=== PATIENT | female | born 1995 | race Two or more races ===

== ENCOUNTER 2023-01-05 20:15 | Inpatient (IN) | payer BC, MEDICAID ==
[~2023-01-05] VITALS: Ht 160 cm; Wt 105.9 kg
[2023-01-05] MEDS ORDERED: HYDROcodone-ACET 5/325MG TAB PO ONE (23:15)
[2023-01-05 23:33] LABS: Basophils # (auto) 0.1 10 ^3/uL (0-0.2); Basophils % (auto) 0.4 % (0.0-2.0); Eosinophils # (auto) 0.1 10 ^3/uL (0-0.8); Eosinophils % (auto) 0.7 % (0.0-7.0); Hematocrit 39.9 % (36.0-46.0); Hemoglobin 13.4 g/dL (12.2-16.2); Lymphocytes # (auto) 1.9 10 ^3/uL (0.4-5.4); Lymphocytes % (auto) 14.1 % (10.0-50.0); Mean Corpuscular Hemoglobin 30.9 pg (28.0-32.0); Mean Corpuscular Hgb Conc. 33.5 g/dL (32.0-36.0); Mean Corpuscular Volume 92.2 fL (80.0-100.0); Monocytes # (auto) 0.8 10 ^3/uL (0-1.3); Monocytes % (auto) 5.6 % (0.0-12.0); Neutrophils # (auto) 10.8 10 ^3/uL (1.6-8.6); Neutrophils % (auto) 79.2 % (37.0-80.0); Red Blood Cells 4.33 10^6/uL (4.0-5.20); Red Cell Distribution Width 13.5 % (11.8-14.3); White Blood Cell 13.6 10^3/uL (4.4-10.8)
[2023-01-05 23:47] LABS: Albumin 3.7 g/dL (3.4-5.0); Calcium 9.7 mg/dL (8.5-10.1); Potassium 4.1 mmol/L (3.5-5.1)
[2023-01-05 23:50] LABS: Bilirubin, Total 0.8 mg/dL (0.2-1.0); Total Protein 7.7 g/dL (6.4-8.2)
[2023-01-06] MEDS ORDERED: ONDANSETRON ODT 4 MG TAB PO ONE (01:00)
[2023-01-06] MEDS ORDERED: HYDROmorphone HCL 2 MG/ML VL/or syr IM ONE (02:15)
[2023-01-06] MEDS ORDERED: SODIUM CHLORIDE 0.9% 1,000 ML IV ONE (05:00)
[2023-01-06] MEDS ORDERED: DOCUSATE SOD 100 MG CAP PO PRN (05:15)
[2023-01-06] MEDS ORDERED: HYDROcodone-ACET 5/325MG TAB PO PRN (05:15)
[2023-01-06] MEDS ORDERED: IBUPROFEN 600 MG TAB PO PRN (05:15)
[2023-01-06] MEDS ORDERED: SODIUM CHLORIDE 0.9% 1,000 ML IV SCH (05:15)
[2023-01-06] MEDS ORDERED: NITROGLYCERIN 0.4 MG SL TAB SL PRN (06:45)
[2023-01-06] MEDS ORDERED: MORPHINE SULFATE INJ 2 MG/ml SYRG IV PRN (06:45)
[2023-01-06 06:55] LABS: Basophils # (auto) 0 10 ^3/uL (0-0.2); Basophils % (auto) 0.5 % (0.0-2.0); Eosinophils # (auto) 0.1 10 ^3/uL (0-0.8); Eosinophils % (auto) 0.9 % (0.0-7.0); Hematocrit 35.6 % (36.0-46.0); Hemoglobin 12.1 g/dL (12.2-16.2); Lymphocytes # (auto) 1.2 10 ^3/uL (0.4-5.4); Lymphocytes % (auto) 20.3 % (10.0-50.0); Mean Corpuscular Hemoglobin 31.5 pg (28.0-32.0); Mean Corpuscular Volume 92.7 fL (80.0-100.0); Monocytes # (auto) 0.3 10 ^3/uL (0-1.3); Monocytes % (auto) 5.2 % (0.0-12.0); Neutrophils # (auto) 4.4 10 ^3/uL (1.6-8.6); Neutrophils % (auto) 73.1 % (37.0-80.0); Red Blood Cells 3.84 10^6/uL (4.0-5.20); Red Cell Distribution Width 13.4 % (11.8-14.3)
[2023-01-06 07:19] LABS: Albumin 3.3 g/dL (3.4-5.0); Calcium 8.3 mg/dL (8.5-10.1)
[2023-01-06 07:23] LABS: BUN/Creatinine Ratio 14.3 (10.0-20.0); Total Protein 6.5 g/dL (6.4-8.2)
[2023-01-06] MEDS: MORPHINE SULFATE INJ 2 MG/ml SYRG IV PRN ×3 (08:10→20:41)
[2023-01-06] MEDS: ONDANSETRON HCL 4 MG/2 ML VIAL IV PRN ×3 (08:12→20:42)
[2023-01-06 09:32] LABS: Urine Amorphous Crystal FEW /hpf (None Seen); Urine Bacteria FEW /hpf (None Seen); Urine Blood Negative /uL (Negative); Urine Mucus FEW (None Seen); Urine Specific Gravity 1.021 (1.001-1.035); Urine WBC 3 /hpf (0 - 5)
[2023-01-06] MEDS: metroNIDAZOLE 500MG/100ML 100 ML IV SCH ×2 (14:43→21:53)
[2023-01-06] MEDS ORDERED: cefTRIAXone 1GM/50ML D5W 50 ML IV ONE (14:57)
[2023-01-06 16:55] VITALS: BP 113/75
[2023-01-06] MEDS: D5W/SOD CHLO 0.9% 1,000 ML IV SCH ×2 (18:14→23:10)
[2023-01-06 22:00] VITALS: BP 108/58
[2023-01-07 05:00] VITALS: BP 111/64
[2023-01-07] MEDS: ONDANSETRON HCL 4 MG/2 ML VIAL IV PRN (05:23)
[2023-01-07] MEDS: MORPHINE SULFATE INJ 2 MG/ml SYRG IV PRN (05:25)
[2023-01-07] MEDS: D5W/SOD CHLO 0.9% 1,000 ML IV SCH ×3 (05:29→18:24)
[2023-01-07] MEDS: metroNIDAZOLE 500MG/100ML 100 ML IV SCH ×3 (05:34→21:48)
[2023-01-07 05:52] LABS: Basophils # (auto) 0 10 ^3/uL (0-0.2); Basophils % (auto) 0.7 % (0.0-2.0); Eosinophils # (auto) 0.2 10 ^3/uL (0-0.8); Hematocrit 35.4 % (36.0-46.0); Hemoglobin 12.3 g/dL (12.2-16.2); Lymphocytes # (auto) 1.3 10 ^3/uL (0.4-5.4); Lymphocytes % (auto) 23.8 % (10.0-50.0); Mean Corpuscular Hemoglobin 32.3 pg (28.0-32.0); Mean Corpuscular Hgb Conc. 34.7 g/dL (32.0-36.0); Mean Corpuscular Volume 93.3 fL (80.0-100.0); Monocytes # (auto) 0.2 10 ^3/uL (0-1.3); Monocytes % (auto) 4.3 % (0.0-12.0); Neutrophils # (auto) 3.8 10 ^3/uL (1.6-8.6); Neutrophils % (auto) 68.2 % (37.0-80.0); Nucleated Red Blood Cells % 0.1 %; Red Blood Cells 3.79 10^6/uL (4.0-5.20); Red Cell Distribution Width 13.1 % (11.8-14.3); White Blood Cell 5.5 10^3/uL (4.4-10.8)
[2023-01-07 06:01] LABS: Potassium 4.1 mmol/L (3.5-5.1)
[2023-01-07 06:14] LABS: Albumin 3.3 g/dL (3.4-5.0); BUN/Creatinine Ratio 11.1 (10.0-20.0); Bilirubin, Total 1.1 mg/dL (0.2-1.0); Calcium 7.9 mg/dL (8.5-10.1); Total Protein 6.3 g/dL (6.4-8.2)
[2023-01-07] MEDS: cefTRIAXone 1GM/50ML D5W 50 ML IV SCH (08:23)
[2023-01-07 08:30] VITALS: BP 107/65
[2023-01-07 09:00] VITALS: BP 107/65
[2023-01-07 12:55] VITALS: BP 127/80
[2023-01-07 18:00] VITALS: BP 120/69
[2023-01-07 21:59] VITALS: BP 113/67
[2023-01-08] MEDS: HYDROmorphone HCL 2 MG/ML VL/or syr IV PRN ×3 (04:07→20:02)
[2023-01-08 05:00] VITALS: BP 113/61
[2023-01-08] MEDS: D5W/SOD CHLO 0.9% 1,000 ML IV SCH ×4 (05:10→20:38)
[2023-01-08] MEDS: metroNIDAZOLE 500MG/100ML 100 ML IV SCH ×3 (05:11→21:05)
[2023-01-08 06:41] LABS: Albumin 3.2 g/dL (3.4-5.0); BUN/Creatinine Ratio 8.8 (10.0-20.0); Calcium 8.2 mg/dL (8.5-10.1); Potassium 3.8 mmol/L (3.5-5.1)
[2023-01-08 06:53] LABS: Bilirubin, Total 0.5 mg/dL (0.2-1.0); Total Protein 6.7 g/dL (6.4-8.2)
[2023-01-08 07:28] LABS: Basophils # (auto) 0.1 10 ^3/uL (0-0.2); Basophils % (auto) 1.1 % (0.0-2.0); Eosinophils # (auto) 0.2 10 ^3/uL (0-0.8); Eosinophils % (auto) 4.5 % (0.0-7.0); Hematocrit 35.6 % (36.0-46.0); Hemoglobin 12.1 g/dL (12.2-16.2); Lymphocytes # (auto) 1.3 10 ^3/uL (0.4-5.4); Lymphocytes % (auto) 26.9 % (10.0-50.0); Mean Corpuscular Hemoglobin 31.9 pg (28.0-32.0); Monocytes # (auto) 0.3 10 ^3/uL (0-1.3); Monocytes % (auto) 6.7 % (0.0-12.0); Neutrophils % (auto) 60.8 % (37.0-80.0); Nucleated Red Blood Cells % 0.2 %; Red Blood Cells 3.78 10^6/uL (4.0-5.20); Red Cell Distribution Width 13.6 % (11.8-14.3)
[2023-01-08] MEDS ORDERED: MORPHINE SULFATE INJ 2 MG/ml SYRG IV PRN (07:45)
[2023-01-08 08:30] VITALS: BP 113/66
[2023-01-08 08:53] VITALS: BP 113/66
[2023-01-08] MEDS: cefTRIAXone 1GM/50ML D5W 50 ML IV SCH (09:13)
[2023-01-08 12:52] VITALS: BP 119/70
[2023-01-08 16:42] VITALS: BP 116/65
[2023-01-08 21:52] VITALS: BP 113/68
[2023-01-09 04:49] VITALS: BP 107/57
[2023-01-09] MEDS: metroNIDAZOLE 500MG/100ML 100 ML IV SCH ×3 (05:14→21:41)
[2023-01-09 05:58] LABS: Basophils # (auto) 0.1 10 ^3/uL (0-0.2); Basophils % (auto) 0.9 % (0.0-2.0); Eosinophils # (auto) 0.2 10 ^3/uL (0-0.8); Eosinophils % (auto) 3.4 % (0.0-7.0); Hematocrit 36.5 % (36.0-46.0); Hemoglobin 12.4 g/dL (12.2-16.2); Lymphocytes # (auto) 1.2 10 ^3/uL (0.4-5.4); Lymphocytes % (auto) 20.9 % (10.0-50.0); Mean Corpuscular Hemoglobin 31.6 pg (28.0-32.0); Mean Corpuscular Volume 92.9 fL (80.0-100.0); Monocytes # (auto) 0.5 10 ^3/uL (0-1.3); Monocytes % (auto) 8.7 % (0.0-12.0); Neutrophils # (auto) 3.9 10 ^3/uL (1.6-8.6); Neutrophils % (auto) 66.1 % (37.0-80.0); Red Blood Cells 3.93 10^6/uL (4.0-5.20); Red Cell Distribution Width 13.6 % (11.8-14.3); White Blood Cell 5.9 10^3/uL (4.4-10.8)
[2023-01-09 06:26] LABS: Calcium 8.4 mg/dL (8.5-10.1); Potassium 3.5 mmol/L (3.5-5.1)
[2023-01-09 06:36] LABS: Albumin 3.5 g/dL (3.4-5.0); BUN/Creatinine Ratio 9.1 (10.0-20.0); Bilirubin, Total 0.5 mg/dL (0.2-1.0); Total Protein 6.7 g/dL (6.4-8.2)
[2023-01-09 09:10] VITALS: BP 125/51
[2023-01-09] MEDS: cefTRIAXone 1GM/50ML D5W 50 ML IV SCH (11:06)
[2023-01-09] MEDS: D5W/SOD CHLO 0.9% 1,000 ML IV SCH ×2 (11:07→18:45)
[2023-01-09 12:23] VITALS: BP 105/50
[2023-01-09 16:38] VITALS: BP 119/52
[2023-01-09 22:00] VITALS: BP 109/58
[2023-01-10 05:00] VITALS: BP 98/55
[2023-01-10] MEDS: metroNIDAZOLE 500MG/100ML 100 ML IV SCH (06:06)
[2023-01-10] MEDS: D5W/SOD CHLO 0.9% 1,000 ML IV SCH (06:10)
[2023-01-10 07:04] LABS: Albumin 3.6 g/dL (3.4-5.0); Calcium 8.4 mg/dL (8.5-10.1); Potassium 3.6 mmol/L (3.5-5.1)
[2023-01-10 07:07] LABS: BUN/Creatinine Ratio 7.4 (10.0-20.0); Bilirubin, Total 0.5 mg/dL (0.2-1.0); Total Protein 7.1 g/dL (6.4-8.2)
[2023-01-10 08:00] VITALS: BP 105/57
[2023-01-10] MEDS: cefTRIAXone 1GM/50ML D5W 50 ML IV SCH (09:42)
[2023-01-10] MEDS ORDERED: METR500T PO (11:44)
[2023-01-10] MEDS ORDERED: LEVO500T31 PO (11:44)
[2023-01-10 12:00] VITALS: BP 116/57
== END 2023-01-10 16:15 | disposition home or self-care (01) | DRG 872 ==
LOC: EDBD 20:15 → ER 20:15 → OVERFLOW 01-06 06:36 → WEST WING 01-06 15:44
PROVIDERS: ADMIT Nurse Practitioner Family; ATTEND Family Medicine
DX: A41.9 Sepsis, unspecified organism (principal); K80.00 Calculus of gallbladder with acute cholecystitis without obstruction; E86.0 Dehydration; Z88.8 Allergy status to other drugs, medicaments and biological substances; Z98.51 Tubal ligation status
CPT/HCPCS: 36415; 70551; 71250; 74176; 74181; 76705; 78226; 80053; 81001; 83690; 84146; 84484; 84702; 85025; 96372; G0378; J0696; J2405; J3490; J7042; Q0162